=== PATIENT | male | born 1970 | race Caucasian/White ===

== ENCOUNTER → 2022-09-22 | Outpatient (CLI) | payer BC, SELFPAY ==
[2022-09-22 13:02] LABS: Absolute Lymphocyte Count 1.22 X10^3/uL (0.83-4.51); Absolute Neutrophil Count 2.5 X10^3/uL (2.0-7.7); Basophil# 0.03 X10^3/uL; Basophil% 0.7 % (0-1); Eosinophil# 0.12 X10^3/uL; Eosinophils% 2.7 % (0-5); Hematocrit 47.1 % (40-54); Hemoglobin 15.5 g/dL (13.0-16.5); Lymphocyte # 1.22 X10^3/ul (0.83-4.51); Lymphocyte % 27.9 % (19-41); Mean Corp Hgb Conc 32.9 g/dL (32-36); Mean Corpuscular Hgb 32.8 pg (27.0-32.0); Mean Corpuscular Volume 99.8 fL (80-94); Mean Platelet Vol. 10.2 fl (6.2-12.0); Monocyte# 0.52 X10^3/uL; Monocyte% 11.9 % (0-10); NRBC Flagged by Analyzer 0 % (0-5); Neutrophil # 2.47 X10^3/uL (2.7-7.7); Neutrophil % 56.6 % (47-70); Platelet Count 232 K/mm3 (150-450); RBC Distribution Width CV 12.4 % (11.6-14.6); RBC Distribution Width SD 46.1 fl (35.1-43.9); Red Blood Count 4.72 M/mm3 (4.6-6.2); White Blood Count 4.4 K/mm3 (4.4-11.0)
[2022-09-22 13:17] LABS: AST(SGOT) 24 U/L (15-37); Alanine Aminotransfer ALT/SGPT 34 U/L (16-61); Albumin, Serum 3.9 g/dL (3.2-5.0); Alkaline Phosphatase 67 U/L (45-117); Anion Gap 5 (5-15); BUN 17 mg/dL (7-18); BUN/Creat Ratio 12.3 RATIO (10-20); Calcium,Total 9.1 mg/dL (8.5-10.1); Chloride 108 mmol/L (98-107); Cholesterol 218 mg/dL (200); Creatinine, Serum 1.38 mg/dL (0.70-1.30); EST Glomerular Filtration Rate 57 mL/min (>60); Est Glom Filt Rate - Afr Amer 70 mL/min (>60); Glucose 105 mg/dL (74-106); High Density Lipoprotein 39 mg/dL; PSA,Total - Annual Screen 1.11 ng/mL (0.00-4.00); Potassium 4.1 mmol/L (3.5-5.1); Protein, Total 7.9 g/dL (6.4-8.2); Sodium Level 140 mmol/L (136-145); Triglycerides 362 mg/dL; Very Low Density Lipoprotein 72 mg/dL (5-40)
== END | disposition home or self-care (01) ==
LOC: BFHLAB 08:59
PROVIDERS: PCP Nurse Practitioner Family; Referring Provider Nurse Practitioner Family; Visit Provider Nurse Practitioner Family
DX: Z00.01 Encounter for general adult medical examination with abnormal findings (principal); I10 Essential (primary) hypertension
CPT/HCPCS: 36415; 80053; 80061; 84153; 85025; G0103

== ENCOUNTER → 2023-11-25 | Outpatient (CLI) | payer BC, SELFPAY ==
[2023-11-25 10:28] LABS: Absolute Lymphocyte Count 1.24 X10^3/uL (0.83-4.51); Absolute Neutrophil Count 3.7 X10^3/uL (2.0-7.7); Basophil# 0.03 X10^3/uL; Basophil% 0.5 % (0-1); Eosinophil# 0.19 X10^3/uL; Eosinophils% 3.4 % (0-5); Hematocrit 44.7 % (40-54); Hemoglobin 14.9 g/dL (13.0-16.5); Lymphocyte # 1.24 X10^3/ul (0.83-4.51); Lymphocyte % 22.1 % (19-41); Mean Corp Hgb Conc 33.3 g/dL (32-36); Mean Corpuscular Hgb 32.6 pg (27.0-32.0); Mean Corpuscular Volume 97.8 fL (80-94); Mean Platelet Vol. 9.7 fl (6.2-12.0); Monocyte# 0.41 X10^3/uL; Monocyte% 7.3 % (0-10); NRBC Flagged by Analyzer 0 % (0-5); Neutrophil # 3.72 X10^3/uL (2.7-7.7); Neutrophil % 66.5 % (47-70); Platelet Count 216 K/mm3 (150-450); RBC Distribution Width CV 12.6 % (11.6-14.6); Red Blood Count 4.57 M/mm3 (4.6-6.2); White Blood Count 5.6 K/mm3 (4.4-11.0)
[2023-11-25 11:48] LABS: ALB/GLOB Ratio 0.9 RATIO (0.9-2.4); AST(SGOT) 19 U/L (15-37); Alanine Aminotransfer ALT/SGPT 26 U/L (16-61); Albumin, Serum 3.6 g/dL (3.2-5.0); Alkaline Phosphatase 77 U/L (45-117); Anion Gap 5 (5-15); BUN 14 mg/dL (7-18); Calcium,Total 9.3 mg/dL (8.5-10.1); Chloride 105 mmol/L (98-107); Cholesterol 196 mg/dL (200); Creatinine, Serum 1.17 mg/dL (0.70-1.30); EST Glomerular Filtration Rate 69 mL/min (>60); Est Glom Filt Rate - Afr Amer 84 mL/min (>60); Glucose 106 mg/dL (74-106); High Density Lipoprotein 45 mg/dL; PSA,Total - Annual Screen 0.89 ng/mL (0.00-4.00); Potassium 4.1 mmol/L (3.5-5.1); Protein, Total 7.6 g/dL (6.4-8.2); Sodium Level 137 mmol/L (136-145); Triglycerides 175 mg/dL; Very Low Density Lipoprotein 35 mg/dL (5-40)
== END | disposition home or self-care (01) ==
LOC: MTLAB 09:06
PROVIDERS: PCP Nurse Practitioner Family; Referring Provider Nurse Practitioner Family; Visit Provider Nurse Practitioner Family
DX: Z00.01 Encounter for general adult medical examination with abnormal findings (principal); Z12.5 Encounter for screening for malignant neoplasm of prostate; I10 Essential (primary) hypertension
CPT/HCPCS: 36415; 80053; 80061; 84153; 85025; G0103

== ENCOUNTER 2024-01-25 06:45 | Day surgery (SDC) | payer BC, SELFPAY ==
[2024-01-25] VITALS (7 sets, daily range): BP systolic 100–135; BP diastolic 63–114; PULSE 57–74; RESP 14–18; TEMP 36.1–36.2; O2SAT 93–99; BMI 30.8
== END 2024-01-25 08:52 | disposition home or self-care (01) ==
LOC: EN 06:46 → AC 06:48
PROVIDERS: PCP Nurse Practitioner Family; Referring Provider Nurse Practitioner Family; Visit Provider Internal Medicine Gastroenterology
PROC: 0DJD8ZZ Inspection of Lower Intestinal Tract, Via Natural or Artificial Opening Endoscopic (ICD-10-PCS; CPT 45378; principal; 2024-01-25 07:55)
DX: Z12.11 Encounter for screening for malignant neoplasm of colon (principal); K57.30 Diverticulosis of large intestine without perforation or abscess without bleeding; I10 Essential (primary) hypertension; Z79.899 Other long term (current) drug therapy
CPT/HCPCS: 45378; A4216; J2405

== ENCOUNTER → 2024-06-04 | Outpatient (CLI) | payer BC, SELFPAY ==
--- NOTE | 2024-06-04 14:35 | VDLE_ITS ---
Reason For Study Reason For Study: Left leg pain RIGHT LEFT CFV is compressible, spontaneous, phasic, competent GSV is normal. and demonstrates normal augmentation. CFV is compressible, spontaneous, phasic, competent, Procedure and demonstrates normal augmentation. This is a venous duplex using B-mode, color flow and FV is compressible, spontaneous, phasic, competent spectral Doppler. and demonstrates normal augmentation. Exam performed in department. POP V is compressible, spontaneous, phasic, competent A preliminary report was called and/or faxed to [facility] and demonstrates normal augmentation. [employer]. T/P Trunk is compressible. PTV is compressible. LT PerV is compressible. Large nonvascularized structure noted in the left popliteal fossa to mid calf. VL/Venous Duplex US, Unilateral Interpretation Summary Deep veins of the left lower extremity are patent and compressible segmentally. There is no evidence of left lower extremity deep vein thrombosis. Valvular competence appears intact within the p roximal deep venous system on the left . The left great saphenous vein appears patent and compressible segmentally. The right common femoral vein is patent and compressible . A large, non-vascular, heterogeneous structure is noted in the l eft popliteal space and upper calf. This may represent a popliteal cyst, hematoma, or seroma. Clinical correlation is ad vised. Ordering Physician: Shannen Mendoza Referring Physician: Shannen Mendoza Performed By: Frances Mazariegos RVT
== END | disposition home or self-care (01) ==
LOC: CVS 14:33
PROVIDERS: PCP Nurse Practitioner Family; Referring Provider Nurse Practitioner Family; Visit Provider Nurse Practitioner Family
DX: M79.605 Pain in left leg (principal); R22.42 Localized swelling, mass and lump, left lower limb
CPT/HCPCS: 93971